=== PATIENT | female | born 1960 | race Caucasian/White ===

== ENCOUNTER → 2017-09-01 | Outpatient (CLI) | payer MEDICAID ==
[2013-08-12 13:17] VITALS: BP 119/79
[2017-09-01 08:09] LABS: BASOPHILS # (AUTO) 0.1 X10^3/uL (0.0-0.1); BASOPHILS % (AUTO) 1.2 % (0.2-1.0); EOSINOPHILS # (AUTO) 0.3 x10^3/uL (0.0-0.2); EOSINOPHILS % (AUTO) 5.6 % (0.9-2.9); HEMATOCRIT 36.9 % (36.0-47.0); LYMPHOCYTES % (AUTO) 39.6 % (21.0-51.0); MEAN CORPUSCULAR HEMOGLOBIN 30.2 pg (27.0-34.0); MEAN CORPUSCULAR HGB CONC 35.1 g/dL (33.0-35.0); MEAN PLATELET VOLUME 7.4 fL (7.4-11.0); MONOCYTES # (AUTO) 0.4 x10^3/uL (0.3-0.8); NEUTROPHILS # (AUTO) 2.2 x10^3/uL (2.2-4.8); NEUTROPHILS % (AUTO) 44.6 % (42.0-75.0); PLATELET COUNT 216 X10^3/uL (150.0-450.0); RED CELL DISTRIBUTION WIDTH 14.3 % (11.6-16.5); WHITE BLOOD COUNT 4.9 X10^3/uL (3.6-10.0)
[2017-09-01 08:17] LABS: ALANINE AMINOTRANSFERASE 17 Units/L (12-78); ALBUMIN 3.5 g/dL (3.4-5.0); ALKALINE PHOSPHATASE 118 Units/L (46-116); ASPARTATE AMINO TRANSFERASE 28 Units/L (15-37); BLOOD UREA NITROGEN 12 mg/dL (7-18); CALCIUM 8.2 mg/dL (8.5-10.1); CARBON DIOXIDE 30.5 mmol/L (21-32); CHLORIDE 101 mmol/L (98-107); CHOL/HDL RATIO 2.4 (0.0-5.0); CHOLESTEROL 139 mg/dL (0-200); CREATININE 1.06 mg/dL (0.55-1.02); HDL CHOLESTEROL 59 mg/dL (40-60); SODIUM 139 mmol/L (136-145); TOTAL PROTEIN 7.3 g/dL (6.4-8.2); TRIGLYCERIDES 97 mg/dL (0-150); eGFR BLACK RACES > 60 (>60); eGFR NON BLACK RACES 57 (>60)
[2017-09-01 08:46] LABS: ERYTHROCYTE SEDIMENTATION RATE 28 MM/HOUR (0-20)
== END ==
LOC: LAB 07:39
PROVIDERS: ATTEND Nurse Practitioner Family
DX: Z79.899 Other long term (current) drug therapy (principal); E87.6 Hypokalemia; I10 Essential (primary) hypertension; M46.96 Unspecified inflammatory spondylopathy, lumbar region; R79.82 Elevated C-reactive protein (CRP); R70.0 Elevated erythrocyte sedimentation rate
CPT/HCPCS: 36415; 80053; 80061; 85025; 85652; 86140

== ENCOUNTER → 2017-09-02 | Outpatient (CLI) | payer MEDICAID ==
[2013-08-12 13:17] VITALS: BP 119/79
== END ==
LOC: LAB 12:39
PROVIDERS: ATTEND Nurse Practitioner Family
DX: E87.6 Hypokalemia (principal)
CPT/HCPCS: 36415; 84132

== ENCOUNTER → 2017-09-04 | Outpatient (CLI) | payer MEDICAID ==
[2013-08-12 13:17] VITALS: BP 119/79
== END ==
LOC: LAB 17:49
PROVIDERS: ATTEND Nurse Practitioner Family
DX: E87.6 Hypokalemia (principal)
CPT/HCPCS: 36415; 84132

== ENCOUNTER 2017-10-26 10:32 | Observation (INO) ==
[2017-10-26 10:37] VITALS: BMI 31.9
[2017-10-26 12:03] LABS: CKMB % 1.9 % (<4); CREATINE KINASE 70 Units/L (26-192); CREATINE KINASE MB 1.3 ng/mL (0-4.0); TROPONIN I < 0.02 ng/mL (0-1.5)
--- NOTE | 2017-10-26 12:18 | RAD ---
HISTORY: Hypotension, dizziness Study: Chest AP portable Comparison: None Findings: The heart is within normal limits in size. The vanessa are normal. The lung griffiths are clear. The bony t horax is unremarkable. There is a spinal cord stimulator at the mid thoracic level. IMPRESSION: Lungs clear Reported By:
--- NOTE | 2017-10-26 13:58 | DR.GENAD ---
HPI PCP Primary Care Physician: Johana Ibarra Complaint/Symptoms Chief Complaint:: pt was at the [facility] and EMS was called due to pt having low blood pressure. Source History Provided: Patient Mode of Arrival Mode of Arrival: Stretcher Timing Onset of Chief Complaint: 10/26/17 PMH PMH Past Medical History: Yes Past Medical History: Dyslipidemia, Migraines and Hypertension Past Medical History Comment: Cervical Cancer Past Surgical History: Yes Surgical History: Cholecystectomy Family History History of Family Medical Conditions: Yes Family Medical History: Diabetes Mellitus, Cancer, [place] and Hypertension Social History Does patient currently use any type of tobacco product: No Have you used tobacco products in the last 12 months: No Type of Tobacco Use: None Alcohol Use: None Do you use any recreational Drugs:: No Lives With: Alone Lives Where: Home infectious screening In the last 2 months have you had wt loss of >10#?: NO Have you had fever, night sweats or hemotysis?: No Have you traveled outside the country in the last 6 months?: No Isolation: Standard PE Vital Signs Vitals: Temperature 98.2 F Pulse Rate 82 Respiratory Rate 18 Blood Pressure 126/60 O2 Sat by Pulse Oximetry 99 ROR Labs Reviewed Result Diagrams: 10/26/17 09:50 Laboratory: Sodium Cancelled 10/26/17 09:50 Corrected Sodium Cancelled 10/26/17 09:50 Potassium Cancelled 10/26/17 09:50 Chloride Cancelled 10/26/17 09:50 Carbon Dioxide Cancelled 10/26/17 09:50 BUN Cancelled 10/26/17 09:50 Creatinine Cancelled 10/26/17 09:50 Est GFR (MDRD) Af Amer Cancelled 10/26/17 09:50 Est GFR (MDRD) Non-Af Cancelled 10/26/17 09:50 Glucose Cancelled 10/26/17 09:50 Calcium Cancelled 10/26/17 09:50 Corrected Calcium Cancelled 10/26/17 09:50 Total Bilirubin Cancelled 10/26/17 09:50 AST Cancelled 10/26/17 09:50 ALT Cancelled 10/26/17 09:50 Alkaline Phosphatase Cancelled 10/26/17 09:50 Creatine Kinase 70 Units/L (26-192) 10/26/17 09:50 CK-MB (CK-2) 1.3 ng/mL (0-4.0) 10/26/17 09:50 CK/CKMB % Calc 1.9 % (<4) 10/26/17 09:50 Troponin I < 0.02 ng/mL (0-1.5) 10/26/17 09:50 Total Protein Cancelled 10/26/17 09:50 Albumin Cancelled 10/26/17 09:50 Globulin Cancelled 10/26/17 09:50 Albumin/Globulin Ratio Cancelled 10/26/17 09:50
[2017-10-26] MEDS: NS 1000 ML 1,000 ML IV SCH (15:16)
[2017-10-26] MEDS: ASPIRIN PO SCH (15:19)
[2017-10-26 15:34] LABS: CKMB % 1.9 % (<4); CREATINE KINASE 78 Units/L (26-192); CREATINE KINASE MB 1.5 ng/mL (0-4.0); TROPONIN I < 0.02 ng/mL (0-1.5)
[2017-10-26 19:04] LABS: BILIRUBIN,URINE NEGATIVE (NEGATIVE); BLOOD/HEMOGLOBIN,URINE NEGATIVE (NEGATIVE); GLUCOSE, URINE NEGATIVE (NEGATIVE); KETONES,URINE NEGATIVE (NEGATIVE); LEUKOCYTE ESTERASE ,URINE 1+ (NEGATIVE); NITRITES,URINE NEGATIVE (NEGATIVE); PROTEIN,URINE NEGATIVE (NEGATIVE); UROBILINOGEN,URINE NORMAL (NORMAL)
[2017-10-26 19:05] LABS: APPEARANCE,URINE CLEAR (CLEAR); COLOR,URINE YELLOW (YELLOW)
[2017-10-26 19:12] LABS: BACTERIA,URINE NEGATIVE /HPF (NEGATIVE); RBC,URINE 0-2 /HPF (NONE SEEN); SQUAMOUS EPITHELIAL CELL,UR RARE /HPF (NEGATIVE)
--- NOTE | 2017-10-26 21:21 | DR.UPDATE ---
H&P Update History and Physical Update: History and Physical reviewed and patient examined. Changes noted: Yes with the following: IS A 57 YEAR OLD PATIENT OF MICHELLE RECIO WHO PRESENTED TO THE EMERGENCY ROOM FROM THE [facility] WITH REPORTS OF LOW BLOOD PRESSURE. PATIENT COMPLAINED OF WEAKNESS, DIZZINESS, AND FEELING FAINT. OFFICE STAFF REPORTS THAT PATIENTS BLOOD PRESSURE WAS 82/58 PRIOR TO CALLING EMS TO TRANSPORT PATIENT. ON ARRIVAL, VITALS WERE 98.2-82-18-99 %-126/60. OUTPATIENT LABS WERE OBTAINED EARLIER TODAY AND REVEALED WBC 3.2, CHLORIDE 108, CREATININE 1.09, GLUCOSE 104, CALCIUM 8.2, ALK PHOS 125, ALBUMIN 3.2. CARDIAC ENZYMES WITHIN NORMAL LIMITS. CHEST XRAY NEGATIVE FOR ACUTE ABNORMALITY. AN EKG REVEALED SINUS RHYTHM WITH HR 59. SHE WAS STARTED ON NORMAL SALINE AT 75ML/HR AND ADMITTED TO THE HOSPITAL FOR FURTHER EVALUATION AND TREATMENT OF HYPOTENSION AND NEAR SYNCOPE. WE PLAN TO OBTAIN SERIAL CARDIAC ENZYMES AND EKGs. OTHERWISE, WE WILL FOLLOW UP WITH AM LABS AND CONTINUE TO MONITOR PATIENT.
[2017-10-26 21:36] LABS: CKMB % 1.8 % (<4); CREATINE KINASE 72 Units/L (26-192); CREATINE KINASE MB 1.3 ng/mL (0-4.0); TROPONIN I < 0.02 ng/mL (0-1.5)
[2017-10-27 03:03] LABS: CKMB % 1.7 % (<4); CREATINE KINASE 60 Units/L (26-192); TROPONIN I < 0.02 ng/mL (0-1.5)
[2017-10-27] MEDS: NS 1000 ML 1,000 ML IV SCH ×2 (04:37→04:59)
[2017-10-27 05:29] LABS: ALANINE AMINOTRANSFERASE 13 Units/L (12-78); ALBUMIN 2.5 g/dL (3.4-5.0); ALKALINE PHOSPHATASE 106 Units/L (46-116); ASPARTATE AMINO TRANSFERASE 24 Units/L (15-37); BLOOD UREA NITROGEN 8 mg/dL (7-18); CALCIUM 8.3 mg/dL (8.5-10.1); CARBON DIOXIDE 25.3 mmol/L (21-32); CHLORIDE 113 mmol/L (98-107); CHOL/HDL RATIO 2.3 (0.0-5.0); CHOLESTEROL 98 mg/dL (0-200); COR CA(FOR HYPOALB) 9.5 mg/dL (8.5-10.1); CREATININE 0.83 mg/dL (0.55-1.02); HDL CHOLESTEROL 42 mg/dL (40-60); MAGNESIUM 1.7 mg/dL (1.7-2.9); SODIUM 143 mmol/L (136-145); TOTAL PROTEIN 5.4 g/dL (6.4-8.2); TRIGLYCERIDES 97 mg/dL (0-150); eGFR NON BLACK RACES > 60 (>60)
[2017-10-27 05:32] LABS: BASOPHILS % (AUTO) 0.3 % (0.2-1.0); EOSINOPHILS # (AUTO) 0.3 x10^3/uL (0.0-0.2); EOSINOPHILS % (AUTO) 9.5 % (0.9-2.9); HEMATOCRIT 35.9 % (36.0-47.0); HEMOGLOBIN 12.2 g/dL (12.0-16.0); LYMPHOCYTES # (AUTO) 1.6 X10^3/uL (1.3-2.9); LYMPHOCYTES % (AUTO) 45.6 % (21.0-51.0); MEAN CORPUSCULAR HEMOGLOBIN 31.5 pg (27.0-34.0); MEAN CORPUSCULAR HGB CONC 33.9 g/dL (33.0-35.0); MEAN CORPUSCULAR VOLUME 92.9 fL (80.0-100.0); MEAN PLATELET VOLUME 7.1 fL (7.4-11.0); MONOCYTES # (AUTO) 0.4 x10^3/uL (0.3-0.8); MONOCYTES % (AUTO) 10.1 % (0.0-13.0); NEUTROPHILS # (AUTO) 1.2 x10^3/uL (2.2-4.8); NEUTROPHILS % (AUTO) 34.5 % (42.0-75.0); PLATELET COUNT 164 X10^3/uL (150.0-450.0); RED BLOOD COUNT 3.87 X10^6/uL (3.5-5.4); RED CELL DISTRIBUTION WIDTH 15.6 % (11.6-16.5); WHITE BLOOD COUNT 3.6 X10^3/uL (3.6-10.0)
[2017-10-27 08:14] VITALS: BP 112/63
[2017-10-27] MEDS: ASPIRIN PO SCH (08:48)
--- NOTE | 2017-10-28 22:09 | DR.GENAD ---
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 FOUND TO BE HYPOTENSIVE.HERE VIA RESCUE. PATIENT IS WEAK AND SLEEPY. NO FEVER. NO DYSURIA OR HEMATURIA. SLIGHT COUGH AND SOB PRESENT. Complaint/Symptoms Chief Complaint Doctors Comments: HYPOTENSION, GENERALIZE WEAKNESS. Chief Complaint:: pt was at the [facility] and EMS was called due to pt having low blood pressure. Nurses notes reviewed Nurses Notes Review: Yes Source History Provided: Patient Mode of Arrival Mode of Arrival: Stretcher Timing Onset of Chief Complaint: 10/26/17 Came on: Suddenly Duration Duration: Constant Duration: Hours Severity Severity: Moderate Modifying Factors Worsens:: standing Improves:: iv fluids and lying down. Associated Signs and Symptoms Associated Signs and Symptoms: weakness, sob, dizzines, headache. PMH PMH Past Medical History: Yes Past Medical History: Dyslipidemia, Migraines and Hypertension Past Medical History Comment: Cervical Cancer Past Surgical History: Yes Surgical History: , Cholecystectomy and Other Family History History of Family Medical Conditions: Yes Family Medical History: Diabetes Mellitus, Cancer, [place] and Hypertension Social History Does patient currently use any type of tobacco product: No Have you used tobacco products in the last 12 months: No Type of Tobacco Use: Cigarettes How many years tobacco product used: 7 Does any household member use tobacco: No Alcohol Use: None Do you use any recreational Drugs:: No Lives With: Alone Lives Where: Home infectious screening In the last 2 months have you had wt loss of >10#?: NO Have you had fever, night sweats or hemotysis?: No Have you traveled outside the country in the last 6 months?: No Isolation: Standard ROS Review of Systems Constitutional: Weakness and Fatigue PE Vital Signs Vitals: Temperature 98.5 F Pulse Rate [Brachial] 67 Pulse Rate 82 Respiratory Rate 20 Blood Pressure [Right Arm] 112/63 Blood Pressure 126/60 O2 Sat by Pulse Oximetry 97 General Limitations: Altered Mental Status General Appearance: Other (SLEEPY BUT AROUSABLE.) Head Head Exam: Normal Inspection, Atraumatic and Normocephalic Eyes Eye exam: PERRL and EOMI; negative Scleral Icterus, Conjunctival Injection, Periorbital Swelling and Periorbital Tenderness ENT ENT Exam: Normal External Ear Exam External Ear Exam: Normal External Inspection TM/Canal Exam: Bilateral: Normal Nose Exam: Normal Nose Exam Mouth Exam: Normal Inspection Throat Exam: Normal Inspection Neck Neck Exam: Trachea Midline; negative Full ROM and Meningismus Chest Chest Inspection: Symmetric Chest Wall Rise; negative Rash Respiratory Respiratory Exam: Normal Lung Sounds Bilat Respiratory Exam: Bilateral: Rhonchi Cardiovascular Cardiovascular Exam: Regular Rate, Normal Rhythm and Normal Heart Sounds Abdominal Exam Abdominal Exam: Normal Inspection, Normal Bowel Sounds and Soft; negative Tenderness Extremities Extremities Exam: Edema (TRACE EDEMA) Back Back Exam: Paraspinal Tenderness (LOWER BACK.) Neurologic Neurological Exam: Other (SLEEPY BUT AROUSABLE.); negative Motor Sensory Deficit Psychiatric Psychiatric Exam: Other (SLEEPY) Skin Skin Exam: Erythema MDM Differential Diagnosis Differential Diagnosis: HYPOTENSION, GENERALIZE WEAKNESS, SEPSIS, CVA. COURSE Treatment Treatment: SEE ORDERS. CONTINUE TO BE SLEEPY IN ED. ROR Labs Reviewed Laboratory Results Reviewed?: Yes Result Diagrams: 10/27/17 04:45 10/27/17 04:45 Laboratory: WBC 3.6 X10^3/uL (3.6-10.0) 10/27/17 04:45 RBC 3.87 X10^6/uL (3.5-5.4) 10/27/17 04:45 Hgb 12.2 g/dL (12.0-16.0) 10/27/17 04:45 Hct 35.9 % (36.0-47.0) L 10/27/17 04:45 MCV 92.9 fL (80.0-100.0) 10/27/17 04:45 MCH 31.5 pg (27.0-34.0) 10/27/17 04:45 MCHC 33.9 g/dL (33.0-35.0) 10/27/17 04:45 RDW 15.6 % (11.6-16.5) 10/27/17 04:45 Plt Count 164 X10^3/uL (150.0-450.0) 10/27/17 04:45 MPV 7.1 fL (7.4-11.0) L 10/27/17 04:45 Neut % (Auto) 34.5 % (42.0-75.0) L 10/27/17 04:45 Lymph % (Auto) 45.6 % (21.0-51.0) 10/27/17 04:45 [place] % (Auto) 10.1 % (0.0-13.0) 10/27/17 04:45 Eos % (Auto) 9.5 % (0.9-2.9) H 10/27/17 04:45 Baso % (Auto) 0.3 % (0.2-1.0) 10/27/17 04:45 Neut # (Auto) 1.2 x10^3/uL (2.2-4.8) L 10/27/17 04:45 Lymph # (Auto) 1.6 X10^3/uL (1.3-2.9) 10/27/17 04:45 [place] # (Auto) 0.4 x10^3/uL (0.3-0.8) 10/27/17 04:45 Eos # (Auto) 0.3 x10^3/uL (0.0-0.2) H 10/27/17 04:45 Baso # (Auto) 0.0 X10^3/uL (0.0-0.1) 10/27/17 04:45 Absolute Nucleated RBC 0.3 /100WBC 10/27/17 04:45 APTT 30.6 SECONDS (22.9-36.5) 10/27/17 04:45 PTT Comment - 10/27/17 04:45 Sodium 143 mmol/L (136-145) 10/27/17 04:45 Corrected Sodium TNP 10/27/17 04:45 Potassium 3.7 mmol/L (3.5-5.1) 10/27/17 04:45 Chloride 113 mmol/L (98-107) H 10/27/17 04:45 Carbon Dioxide 25.3 mmol/L (21-32) 10/27/17 04:45 BUN 8 mg/dL (7-18) 10/27/17 04:45 Creatinine 0.83 mg/dL (0.55-1.02) 10/27/17 04:45 Est GFR (MDRD) Af Amer > 60 (>60) 10/27/17 04:45 Est GFR (MDRD) Non-Af > 60 (>60) 10/27/17 04:45 Glucose 100 mg/dL (65-99) H 10/27/17 04:45 Calcium 8.3 mg/dL (8.5-10.1) L 10/27/17 04:45 Corrected Calcium 9.5 mg/dL (8.5-10.1) 10/27/17 04:45 Magnesium 1.7 mg/dL (1.7-2.9) 10/27/17 04:45 Total Bilirubin 0.30 mg/dL (0.2-1.0) 10/27/17 04:45 AST 24 Units/L (15-37) 10/27/17 04:45 ALT 13 Units/L (12-78) 10/27/17 04:45 Alkaline Phosphatase 106 Units/L (46-116) 10/27/17 04:45 Creatine Kinase 60 Units/L (26-192) 10/27/17 02:32 CK-MB (CK-2) 1.0 ng/mL (0-4.0) 10/27/17 02:32 CK/CKMB % Calc 1.7 % (<4) 10/27/17 02:32 Troponin I < 0.02 ng/mL (0-1.5) 10/27/17 02:32 Total Protein 5.4 g/dL (6.4-8.2) L 10/27/17 04:45 Albumin 2.5 g/dL (3.4-5.0) L 10/27/17 04:45 Globulin 2.9 g/dL (2.5-4.5) 10/27/17 04:45 Albumin/Globulin Ratio 0.9 Ratio (1.1-2.1) L 10/27/17 04:45 Triglycerides 97 mg/dL (0-150) 10/27/17 04:45 Cholesterol 98 mg/dL (0-200) 10/27/17 04:45 LDL Cholesterol, Calc 37 mg/dL (0-100) 10/27/17 04:45 HDL Cholesterol 42 mg/dL (40-60) 10/27/17 04:45 Cholesterol/HDL Ratio 2.3 (0.0-5.0) 10/27/17 04:45 Specimen Type Clean catch urine 10/26/17 18:54 Urine Color Yellow (YELLOW) 10/26/17 18:54 Urine Appearance Clear (CLEAR) 10/26/17 18:54 Urine pH 6.0 (5.0 - 8.0) 10/26/17 18:54 Ur Specific [place] 1.010 (1.000-1.030) 10/26/17 18:54 Urine Protein Negative (NEGATIVE) 10/26/17 18:54 Urine Glucose (UA) Negative (NEGATIVE) 10/26/17 18:54 Urine Ketones Negative (NEGATIVE) 10/26/17 18:54 Urine Occult Blood Negative (NEGATIVE) 10/26/17 18:54 Urine Nitrite Negative (NEGATIVE) 10/26/17 18:54 Urine Bilirubin Negative (NEGATIVE) 10/26/17 18:54 Urine Urobilinogen Normal (NORMAL) 10/26/17 18:54 Ur Leukocyte Esterase 1+ (NEGATIVE) 10/26/17 18:54 Urine RBC 0-2 /HPF (NONE SEEN) 10/26/17 18:54 Urine WBC 0-2 /HPF (NONE SEEN) 10/26/17 18:54 Ur Squamous Epith Cells Rare /HPF (NEGATIVE) 10/26/17 18:54 Urine Bacteria Negative /HPF (NEGATIVE) 10/26/17 18:54 Ur Culture Indicated? No/not indicated 10/26/17 18:54 XRAY XRAY Findings: REPORT DISCUSS WITH PATIENT. EKG Rhythm: NSR (EKG NOTED.) Instructions Instructions: Near-Syncope, [id number] Hypertension, [id number] Forms: Patient Portal
--- NOTE | 2017-11-09 15:09 | DR.CARTERD ---
- Discharge Summary for: Discharge Summary for Date of:: 10/27/17 - Admission Date Date of Admission: 10/26/17 - Admission Diagnoses Admission Diagnosis: 1. Hypotension 2. Lethargy 3. Dizziness - Discharge Date Discharge Date: 10/27/17 - Discharge Diagnoses Discharge Diagnosis: 1. Hypotension 2. Lethargy 3. Dizziness - Hospital Course Hospital Course: Day one, Ms. Ruiz presented to the emergency room via EMS after being seen in the clinic with reports of dizziness. Patient noted to be lethargic on arrival to office and uncooperative. Patient noted with a decreased blood pressure on arrival to office of 82/58. Patient sent to the emergency room for further evaluation and treatment. On arrival to the emergency room patient noted with a blood pressure of 120s over 60s. A brain CT was obtained due to lethargy which was noted without acute abnormality. Patient reported dizziness started gradually two weeks prior and had worsened since onset. Medical History: Migraines, Hyperlipidemia, Hypertension, Bronchitis, UTIs, Arthritis, Back Pain , Cervical CA, Anemia, Depression. Abnormal Labs: Hct 35.9, MPV 7.1. Urinalysis: Leuk Est 1+, RBC 0-2, WBC 0-2. Chest X-Ray: Lungs clear. Brain CT : No significant abnormality identified. EKG: Sinus Rhythm, rate=59. Medications: NS @75ml/hr, Aspirin 325mg po daily. Patient admitted to the hospital as observation and started on IV fluids. Day two, Patient reported dizziness had improved. Blood pressure had remained stable since admission. Patient reported she was feeling much better. No lethargy noted. Patient was cooperative and followed commands well. Vital signs stable. Labs wnl. We planned for discharge. Instructions for medications and follow up were discussed with patient and family, both voiced understanding. Patient discharged home in stable condition with family. - Discharge Medications Discharge Medications: Home Medication List acetaminophen 1 tab PO PRN PRN 10/26/17 [History] famotidine 20 mg PO BID 10/26/17 [History] hydroxyzine pamoate 1 cap PO TID 10/26/17 [History] potassium chloride 10 meq PO DAILY 10/26/17 [History] quetiapine 1 tab PO HS 10/26/17 [History] sertraline 50 mg PO DAILY 10/26/17 [History] simvastatin 20 mg PO DAILY 10/26/17 [History] tizanidine 4 mg PO Q8H PRN 10/26/17 [History] topiramate 200 mg PO HS 10/26/17 [History] trazodone 1 tab PO HS 10/26/17 [History] zolpidem 10 mg PO HS 10/26/17 [History] aspirin [Ecotrin] 325 mg PO DAILY #90 tab 10/27/17 [Rx] Prescriptions: aspirin [Ecotrin] Trace Lynch Polo - Discharge Disposition Discharge Disposition: Patient is to follow up with MARGAUX Sauer in one week.
== END 2017-10-27 10:50 | disposition home or self-care (01) ==
LOC: MED/SURG 10:32 → ER 10:32 → MED/SURG 14:40
PROVIDERS: ADMIT Internal Medicine; ATTEND Internal Medicine
DX: R53.1 Weakness; I95.89 Other hypotension; R29.6 Repeated falls; G47.9 Sleep disorder, unspecified; I10 Essential (primary) hypertension; Z79.01 Long term (current) use of anticoagulants; R42 Dizziness and giddiness; M15.0 Primary generalized (osteo)arthritis
CPT/HCPCS: 36415; 70450; 71010; 71045; 80053; 80061; 81001; 82550; 82553; 83735; 84484; 85025; 85730; 93005; 94760; 96365; 96367; 99282; 99284; A4222; G0378; J7030